=== PATIENT | female | born 1965 | race Caucasian/White ===

== ENCOUNTER → 2020-01-18 | Outpatient (CLI) | payer OTHER ==
[~2020-01-18] VITALS: Ht 162.6 cm; Wt 97.5 kg
[~2020-01-18] MED LIST: AMARYL2 M1 PO; ASA81BEC PO; METFORMIN HCL500 M3 PO; PRINIVIL20 M1 PO; SIMVASTATIN80 MG PO; TRESIBA FL100 UNIT/1 SUBQ
[2020-01-18 09:57] VITALS: BP 145/84
[2020-01-18 10:03] LABS: HEMATOCRIT 40.3 % (37.0-47.0); HEMOGLOBIN 13.7 gm/dL (12.0-15.0); MCH 29.4 pg (26.0-34.0); MCHC 34.1 g/dL (28.0-37.0); MCV 86.2 fL (80.0-100.0); MPV 8.2 fl. (7.2-11.1); RBC 4.68 mil/uL (4.20-5.00); RDW-CV 13.2 % (10.5-14.5); WBC 8.9 thou/uL (4.0-11.0)
[2020-01-18 10:16] LABS: APTT 24.8 Seconds (25.0-31.3); PROTIME 10.6 Seconds (9.20-11.50)
[2020-01-18 10:20] LABS: ANION GAP 6 mmol/L (7-16); BUN 12 mg/dL (7-18); CALCIUM 9.4 mg/dL (8.5-10.1); CHLORIDE 100 mmol/L (98-107); CO2 28 mmol/L (21-32); CREATININE 0.7 mg/dL (0.6-1.3); GLUCOSE 191 mg/dL (70-99); SODIUM 134 mmol/L (136-145)
[2020-01-18 10:24] LABS: ALBUMIN 3.9 g/dL (3.4-5.0); ALKALINE PHOSPHATASE 87 U/L (46-116); CHOLESTEROL 144 mg/dL (<200); HDL CHOLESTEROL 45 mg/dL (>40); LDL CHOLESTEROL 68 mg/dL (<100); SGOT 21 U/L (15-37); SGPT 42 U/L (30-65); TC:HDL 3.2 Ratio (Not establshd); TOTAL BILIRUBIN 0.4 mg/dL (<0.1-1.0); TOTAL PROTEIN 7.7 g/dL (6.4-8.2); TRIGLYCERIDE 158 mg/dL (<150); VLDL 32 mg/dL (<40)
[2020-01-18 10:26] LABS: SERUM ASSESSMENT Clear
--- NOTE | 2020-01-18 11:37 | EKG ---
[place] [address] ELECTROCARDIOGRAM REPORT Name: DEBBIE BRUCE Room: [facility]#: [id number] Admission: 01/18/20 Attend Phys: Wallace Mendez MD Discharge: Date of : 63 Date of Service: 01/18/20 1014 Report #: [id number] THIS REPORT FOR: //name// [facility] Test Date: 2020-01-18 Test Time: 10:14:53 Pat Name: DEBBIE BRUCE Department: Room: Gender: F Order Entry Technician: : 1965 Requested By: Wallace Mendez Order Number: [id number] Lnyn MD: Wallace Mendez Measurements Intervals [place] Rate: 76 P: 42 WI: 197 QRS: 9 QRSD: 110 T: 12 QT: 388 QTc: 437 Interpretive Statements Sinus rhythm Ventricular premature complex No previous ECG available for comparison Electronically Signed On 01-18-2020 11:37:15 REFRESH TECHNICIAN by Wallace Mendez [email or web address] <ELECTRONICALLY SIGNED> By: Wallace Mendez MD, [facility] 01/18/20 1137 1014 1014 Wallace Mendez MD, FACC /EPI
[2020-01-18 13:52] VITALS: BP 116/67
[2020-01-18 14:39] VITALS: BP 134/70
--- NOTE | 2020-01-18 15:19 | CARD ---
[address] [address] CARDIAC CATH REPORT Name: DEBBIE BRUCE Room: [facility] BOOGIE [place]#: [id number] Admission: 01/18/20 Attend Phys: Wallace Mendez MD, F Discharge: Date of : 63 Report #: [id number] THIS REPORT FOR: //name// cc: Jeannine Rodriguez Dorothy L. RNP ~ APPROVED REPORT Study performed: 01/18/2020 11:48:13 Patient Details Patient Status: Out-Patient Room #: The patient is a 54 year-old female Event Personnel Wallace Mendez Account Receivable Clerk, Liz Blackburn RN, Ranjeet Zarate Jessie Monitor Procedures Performed Art Access- R Radial artery, Left Heart cath w/ or w/o Coronaries, Hemostasis- Hemoband Indication Arrhythmia, Palpitations, Positive stress test, Chest pain, Murmur Risk Factors Arterial Hypertension, Hypercholesterolemia, Diabetes Admission/Lab Medications/Medications given during procedure Heparin Unfract. Procedure Narrative The patient was brought electively to the Cardiac Catheterization Laboratory and was prepped and draped in a sterile manner. The right wrist was infiltrated with 2% Lidocaine subcutaneous anesthesia. A slender glide 6 Fr sheath was inserted into the right radial artery. Coronary angiography was performed using coronary diagnostic catheters. The right coronary system was accessed and visualized with a Diagnostic 6 Fr JR4 catheter. The left coronary system was accessed and visualized with a Diagnostic 6 Fr JL 4 catheter. The left ventricle was accessed and visualized with a Diagnostic 6 Fr Pigtail catheter. Left ventricular/Aortic Valve gradient assessed via catheter pullback. Left ventriculogram was performed in [place]ED[place] projection. Closure device was deployed with a 6 Fr vascband. The patient tolerated the procedure well [place] [address] CARDIAC CATH REPORT Name: DEBBIE BRUCE Room: [facility]#: [id number] Admission: 01/18/20 Attend Phys: Wallace Mendez MD, F Discharge: Date of : 63 Report #: [id number] associated with the procedure. There was no hematoma. Intraoperative Conscious Sedation Sedation start time: 12:28 Case end Time: 13:00 Fentanyl 25.0 mcg Versed 2.0 mg Fluoro Time: 5.6 minutes Dose: DAP 19511 cGycm2 1052 mGy Contrast Type and Amount: Omnipaque 8 ml Coronary Angiography The patient's coronary anatomy is right dominant. [place] Artery Percent Stenosis Left Main: 0 % Prox LAD: 0 % Mid/Distal LAD: 40 % Circumflex: 0 % RCA: 30 % Ramus: % Left Ventriculography The left ventricular ejection fraction is estimated to be 60-65%. Left ventricular wall motion abnormalities are not present. There is 2+ mitral insufficiency. Hemodynamics The aortic pressure is 112/63 mmHg with a mean of 85 mmHg. The left ventricular pressure is 124/0 mmHg with a mean of mmHg. The left ventricular end diastolic pressure is 9 mmHg. There was no gradient across the aortic valve upon pullback. Pullback from the left ventricle to the aorta revealed no gradient across the aortic valve. Conclusion 1. Minimal CAD with 40% stenosis in the mid LAD and 30% in the proximal RCA 2. LVEF 60-65% 3. Moderate mitral regurgitation Recommendations repeat echo in 1 year <ELECTRONICALLY SIGNED> By: Wallace Mendez MD, FACC 01/18/20 1518 1518 1518Dagerman Mendez MD, FACC /INF
--- NOTE | 2020-01-18 15:24 | H ---
[address] [address] HISTORY AND PHYSICAL Name: DEBBIE BRUCE Room: [facility] JONH [place]#: [id number] Admission: 01/18/20 Attend Phys: Wallace Mendez MD, F Discharge: Date of : 63 Report #: [id number] THIS REPORT FOR: //name// cc: Jeannine Rodriguez Dorothy L. RNP ~ CC: Wallace Rodriguez NP DATE OF SERVICE: 01/18/2020 STAT HISTORY AND PHYSICAL HISTORY OF PRESENT ILLNESS: The patient is a 54-year-old white female who was brought to the outpatient department to undergo cardiac catheterization. The patient has a long history of palpitations. She apparently wore a 24-hour Holter monitor at [facility] in the past and apparently no significant arrhythmias were detected. Recently, she complained of intermittent chest pressure. It is not related to exertion or meals. There is no radiation of the pain. It is not related to swallowing. She also notes some exertional dyspnea. She continues to complain of episodes when her heart will race. This last almost several seconds, almost every day. She has had no fever or cough. I saw her in Cardiology Clinic on 12/12/2019 and noticed that she had heart murmur. I recommended a stress echocardiogram to rule out ischemia. This was performed in my office. On the stress test, she had an episode of nonsustained ventricular tachycardia. She had nonspecific ST-segment changes. No wall motion abnormalities were noted. Because of her abnormal stress test, recommended she undergo cardiac catheterization. PAST MEDICAL HISTORY: She has had a hysterectomy. She had an ovary removed and was found to have cancer in the past. She has a history of diabetes, hyperlipidemia, hypertension. MEDICATIONS: Glimepiride, insulin, lisinopril, metformin, simvastatin. ALLERGIES: She has no known drug allergies. FAMILY HISTORY: Negative for heart disease. SOCIAL HISTORY: She is . She works in a daycare. No smoking. No alcohol abuse. REVIEW OF SYSTEMS: No history of stroke, asthma, liver disease, kidney disease, chronic skin condition. PHYSICAL EXAMINATION: [place] [address] HISTORY AND PHYSICAL Name: DEBBIE BRUCE Room: [facility]#: [id number] Admission: 01/18/20 Attend Phys: Wallace Mendez MD, F Discharge: Date of : 63 Report #: [id number] GENERAL: Revealed a middle-aged female, appeared in no distress. VITAL SIGNS: Blood pressure 140/90, pulse is 80. HEENT: She was anicteric. Mucous membranes moist. NECK: Veins do not appear distended. CHEST: Clear to auscultation. CARDIOVASCULAR: Regular rate and rhythm, grade 3 systolic ejection murmur along the sternal border. ABDOMEN: Soft. EXTREMITIES: Had no edema. SKIN: Warm and dry. IMPRESSION AND RECOMMENDATIONS: 1. Nonsustained ventricular tachycardia. Recommend cardiac catheterization. 2. Possible crescendo angina. 3. Hyperlipidemia. The patient is on statin drug. Recently, had vascular screening that showed no significant carotid stenosis. There is no abdominal aneurysm. ABIs were normal. 4. Hypertension. The patient is on CAYDEN inhibitor. 5. Diabetes. 6. Mild aortic stenosis. 7. History of ovarian cancer. <ELECTRONICALLY SIGNED> By: Wallace Mendez MD, FACC 01/18/20 1524 1121 1138Dagerman Mendez MD, FACC /nt
[2020-01-18 15:34] VITALS: BP 130/57
== END | disposition home or self-care (01) ==
LOC: M.CL 08:59
PROVIDERS: ATTEND Internal Medicine Cardiovascular Disease
DX: R07.9 Chest pain, unspecified (principal); R94.39 Abnormal result of other cardiovascular function study; I25.10 Atherosclerotic heart disease of native coronary artery without angina pectoris; I34.0 Nonrheumatic mitral (valve) insufficiency; I10 Essential (primary) hypertension; E78.00 Pure hypercholesterolemia, unspecified; E11.9 Type 2 diabetes mellitus without complications; R00.2 Palpitations; Z98.890 Other specified postprocedural states; Z79.899 Other long term (current) drug therapy